=== PATIENT | male | born 1960 | race Caucasian/White ===

== ENCOUNTER → 2020-08-10 | Outpatient (CLI) | payer BC | END | disposition home or self-care (01) | LOC: LABWHC1 15:52 | PROVIDERS: ATTEND Emergency Medicine | DX: Z20.828 Contact with and (suspected) exposure to other viral communicable diseases (principal) | CPT/HCPCS: U0003; C9803 ==

== ENCOUNTER → 2020-10-11 | Outpatient (CLI) | payer BC ==
--- NOTE | 2020-10-12 08:31 | US ---
EXAMINATION TYPE: US carotid duplex BILAT DATE OF EXAM: 10/11/2020 COMPARISON: NONE CLINICAL HISTORY: R42 Dizziness and giddiness. Dizziness and giddiness per order. Hx hypertension. Cu rrent smoker. EXAM MEASUREMENTS: RIGHT: Peak Systolic Velocity (PSV) cm/sec ----- Right CCA: 61.4 ----- Right ICA: 73.5 ----- Right ECA: 128.3 ICA/CCA ratio: 1.2 RIGHT: End Diastole cm/sec ----- Right CCA: 15.2 ----- Right ICA: 20.3 ----- Right ECA: 19.3 LEFT: Peak Systolic Velocity (PSV) cm/sec ----- Left CCA: 56.4 ----- Left ICA: 143.0 ----- Left ECA: 96.0 ICA/CCA ratio: 2.5 LEFT: End Diastole cm/sec ----- Left CCA: 15.9 ----- Left ICA: 52.4 ----- Left ECA: 14.6 VERTEBRALS (direction of flow): Right Vertebral: Antegrade Left Vertebral: Antegrade Rhythm: Normal Elevated velocity within right ECA and left ICA. Plaque seen right CCA, right bulb, left bulb, and le ft ICA. Hypoechoic area with hyperechoic center seen right neck measuring 1.6 x 1.1 x 0.5 cm. IMPRESSION: 1. Atheromatous plaquing left internal carotid artery with moderate narrowing between 50 and 69%. 2. There may be some lymphadenopathy within the right neck Criteria for Assigning % of Stenosis / Diameter reduction (Estimation based on the indirect measurements of the internal carotid artery velocities (ICA PSV). 1. Normal (no stenosis)=ICA PSV < 125 cm/s: ratio < 2.0: ICA EDV<40 cm/s. 2. Less than 50% stenosis=ICA PSV < 125 cm/s: ratio < 2.0: ICA EDV<40 cm/s. 3. 50 to 69% stenosis=ICA PSV of 125 to 230 cm/s: ration 2.0 ? 4.0: ICA EDV 40-100 cm/s. 4. Greater than 70% stenosis to near occlusion= ICA PSV > 230 cm/s: ratio > 4.0: ICA EDV > 100 cm/s. 5. Near occlusion= ICA PSV velocities may be low or undetectable: variable ratio and ICA EDV. 6. Total occlusion=unable to detect flow.
== END | disposition home or self-care (01) ==
LOC: RADUSWWP 16:56
PROVIDERS: ATTEND Internal Medicine
DX: I65.22 Occlusion and stenosis of left carotid artery (principal)
CPT/HCPCS: 93880

== ENCOUNTER → 2020-11-08 | Outpatient (CLI) | payer BC ==
--- NOTE | 2020-11-08 12:25 | US ---
EXAMINATION TYPE: US thyroid st tissue head/neck DATE OF EXAM: 11/08/2020 COMPARISON: Carotid ultrasound 10/11/2020 CLINICAL HISTORY: 59 year-old male L04.9 Acute lymphadenitis, unspecified. Carotid ultrasound showed right neck lymph node. TECHNIQUE: Ultrasound along the right side of the neck at the site of previously seen lymph node. Diana ges of the contralateral side were also obtained. FINDINGS: Right neck lymph node visualized = 1.5 x 0.5 x 0.3 cm. Previously, this measured 1.6 x 1.1 x 0.5 cm. Contralateral images taken. IMPRESSION: A prominent but nonenlarged lymph node along the right side of the neck measuring 1.5 x 0.5 cm (decre ased in size versus 1.6 x 1.1 cm, previously). Decreasing size suggests a reactive/post inflammatory etiology. The node can continue to be followed clinically.
== END | disposition home or self-care (01) ==
LOC: RADUSWWP 10:19
PROVIDERS: ATTEND Internal Medicine
DX: L04.9 Acute lymphadenitis, unspecified (principal)
CPT/HCPCS: 76536

== ENCOUNTER → 2020-11-14 | Outpatient (CLI) | payer BC ==
--- NOTE | 2020-11-14 08:42 | CTL ---
EXAMINATION TYPE: CT Low Dose Lung DATE OF EXAM ORDERED: 11/14/2020 HISTORY: 59-year-old male Z87.891. Personal history of tobacco use. Lung cancer screening CT DLP: 100.[address] CTDI: 2.5 mGy Automated exposure control for dose reduction was used. SCREENING VISIT: Baseline COMPARISON: None TECHNIQUE: Low dose computed tomography scan was performed through the chest at 1 mm thick sections a nd reconstructed images in coronal and sagittal planes. CT DIAGNOSTIC QUALITY: Satisfactory FINDINGS: Heart normal size without pericardial effusion. Trace pericardial fluid. Mild atherosclerotic arch calcifications with bovine configuration to the aortic arch. Scattered nonenlarged mediastinal lymph nodes measuring up to 6 mm lower right paratracheal and 7 mm lower left paratracheal. Trace bilateral gynecomastia. No thoracic lymphadenopathy by CT size criteri a. 4 mm pulmonary nodule right mid lung along the major fissure, axial image 147 likely intrafissural ly mph node. 4 mm medial right apical pulmonary nodule, axial image 51. 4 mm lateral right apical pulmonary nodule, axial image 43. 4 mm lateral left upper lobe pulmonary nodule, axial image 103 6 mm posterior left lower lobe pulmonary nodule, axial image 270. 5 mm subpleural pulmonary nodule posterior right base, axial image 288. Biapical pleural-parenchymal scarring. Mild/moderate centrilobular emphysema and mild to moderate central bronchial wall thickening. Moderate atherosclerotic calcifications of the visualized upper abdominal aorta. Bones: No osseous destructive process. IMPRESSION: 1. LungRADS Category 3 (probably benign, 1-2% chance of malignancy). Scattered pulmonary nodules, lar gest measuring 6 mm in the posterior left lower lobe. 2. COPD with [id number] emphysema. 3. Either a prominent component of chronic bronchitis or superimposed acute bronchitis. RECOMMENDATION: 1. Six-month follow-up low-dose CT chest to reassess the pulmonary nodules. 2. Smoking cessation. CT LUNG RAD AND CT CHEST RECOMMENDATION: Lung-Rad 3 Probably Benign: 6 month follow-up LDCT.
== END ==
LOC: RADCTMAIN 06:51
PROVIDERS: ATTEND Physician Assistant
DX: Z12.2 Encounter for screening for malignant neoplasm of respiratory organs (principal); R91.8 Other nonspecific abnormal finding of lung field; J44.9 Chronic obstructive pulmonary disease, unspecified; Z87.891 Personal history of nicotine dependence
CPT/HCPCS: 71271

== ENCOUNTER → 2020-12-29 | Outpatient (CLI) | payer BC | END | disposition home or self-care (01) | LOC: LABWHC1 15:33 | PROVIDERS: ATTEND Emergency Medicine | DX: Z20.822 Contact with and (suspected) exposure to COVID-19 (principal) | CPT/HCPCS: U0003; C9803; U0005 ==

== ENCOUNTER → 2022-09-06 | Outpatient (CLI) | payer BC ==
[2022-09-06 10:53] LABS: African American GFR (CKD) >90 (>60 ml/min/1.73 sqM); Blood Urea Nitrogen 12 mg/dL (9-20); Non-African American GFR(CKD) >90 (>60 ml/min/1.73 sqM)
--- NOTE | 2022-09-06 13:55 | CT ---
CTA abdomen, pelvis and lower extremities. HISTORY: Left lower extremity radiculopathy COMPARISON: None. TECHNIQUE: Multiple axial images were obtained through the abdomen and pelvis and lower extremities a ccording to the CTA protocol. Coronal and sagittal reconstructions were generated and reviewed. 3-D p ostprocessing was performed. FINDINGS: Inflow arterial circulation: The infrarenal abdominal aorta is heavily calcified but not aneurysmal. There is a suggestion of a si gnificant stenosis of the proximal superior mesenteric artery with 2 cm distal to its origin. The renal arteries are partially calcified but appear patent and the kidneys excrete contrast promptl y and symmetrically. Left inflow: The iliac arteries are moderately calcified. There is at least a moderate stenosis of th e proximal left common iliac artery and within the mid to proximal left external iliac artery. There is at least a moderate stenosis of the distal left external iliac artery. Right inflow: There is no significant stenosis of the right common or external iliac. Outflow arterial circulation: Right outflow: There is moderate scattered calcification of the right common femoral artery but no si gnificant stenosis. There is a severe stenosis of the proximal right superficial femoral artery. The right popliteal kit ry is patent. Left outflow: There is a moderate stenosis of the proximal left common femoral artery. There are mult iple scattered anterior stenoses within the left superficial femoral artery both in its proximal segm ent and in the region of the adductor canal. There is a severe stenosis of the proximal left poplitea l artery. Runoff: Right lower extremity: There is three-vessel runoff into the foot and ankle. Left lower extremity there is three-vessel runoff into the foot and ankle.. IMPRESSION: 1. Moderate to severe multifocal inflow disease on the left involving the left common and external il iac arteries. No significant inflow disease on the right. 2. Significant outflow disease bilaterally as described above, left greater than right, involving th e left proximal and distal superficial femoral artery and proximal left popliteal artery. 3. No significant runoff disease bilaterally. 4. Possible significant stenosis of the proximal superior mesenteric artery.
== END | disposition home or self-care (01) ==
LOC: RADCTMAIN 10:16
PROVIDERS: ATTEND Surgery
DX: I71.40 Abdominal aortic aneurysm, without rupture, unspecified (principal)
CPT/HCPCS: 82565; 84520; 75635; 36415; Q9967

== ENCOUNTER 2022-09-19 10:50 | Day surgery (SDC) | payer BC ==
[2022-09-16 14:35] VITALS: BMI 23.4
[~2022-09-19 10:50] MED LIST: ALPRAZolam 0.25 MG TAB PO PRN; ALPRAZolam 0.5 MG TAB PO PRN; ASPIRIN 325 MG TAB PO PRN; HEPARIN SODIUM,PORCINE 10,000 UNIT in SODIUM CHLORIDE 0.9% 1,000 ML IRRIGATION PRN; HEPARIN SODIUM,PORCINE 2,500 UNIT in SODIUM CHLORIDE 0.9% 250 ML IRRIGATION PRN; SODIUM CHLORIDE 0.9% 1,000 ML in EMPTY BAG 1 BAG IV ONE; ZOLPIDEM 5 MG TAB PO PRN
[2022-09-19 11:23] LABS: Basophils % (A) 0 %; Eosinophils # (A) 0.4 k/uL (0-0.7); Eosinophils % (A) 4 %; HCT 41.4 % (39.0-53.0); HGB 13.9 gm/dL (13.0-17.5); Lymphocytes # (A) 1.8 k/uL (1.0-4.8); Lymphocytes % (A) 18 %; MCH 33.7 pg (25.0-35.0); MCHC 33.6 g/dL (31.0-37.0); MCV 100.2 fL (80.0-100.0); Macrocytosis Slight; Mean Platelet Volume 9.2; Monocytes # (A) 0.5 k/uL (0-1.0); Monocytes % (A) 5 %; Neutrophils # (A) 7.1 k/uL (1.3-7.7); Neutrophils % (A) 71 %; Platelet Count 213 k/uL (150-450); RBC 4.13 m/uL (4.30-5.90); RDW 13.8 % (11.5-15.5)
[2022-09-19] MEDS ORDERED: SODIUM CHLORIDE 0.9% 1,000 ML IV ONE (11:36)
[2022-09-19 11:38] LABS: African American GFR (CKD) >90 (>60 ml/min/1.73 sqM); Anion Gap 6 mmol/L; Blood Urea Nitrogen 13 mg/dL (9-20); Calcium 8.9 mg/dL (8.4-10.2); Carbon Dioxide 25 mmol/L (22-30); Chloride 107 mmol/L (98-107); Glucose 106 mg/dL (74-99); Non-African American GFR(CKD) >90 (>60 ml/min/1.73 sqM); Potassium 4.4 mmol/L (3.5-5.1); Sodium 138 mmol/L (137-145)
[2022-09-19] MEDS ORDERED: fentaNYL (PF) 50 MCG/ML 2 ML AMP ONE (12:55)
[2022-09-19] MEDS ORDERED: MIDAZOLAM 2 MG/2 ML VIAL IV ONE (13:02)
[2022-09-19] MEDS ORDERED: fentaNYL (PF) 50 MCG/ML 2 ML AMP IV ONE (13:03)
[2022-09-19] MEDS ORDERED: LIDOCAINE 1% INJ 10MG/ML (30 ML VIAL-PF) SQ ONE (13:03)
[2022-09-19] MEDS ORDERED: hydrALAZINE HCL 20 MG/ML 1 ML VIAL ONE (13:57)
[2022-09-19] MEDS ORDERED: hydrALAZINE HCL 20 MG/ML 1 ML VIAL IV ONE (13:58)
[2022-09-19] MEDS ORDERED: IOPAMIDOL-250 100ML BTL INTRAARTER ONE ×3 (13:59)
[2022-09-19] MEDS ORDERED: CLOPIDOGREL 75 MG TAB ONE (14:00)
[2022-09-19] MEDS ORDERED: CLOPIDOGREL 75 MG TAB PO ONE (14:02)
--- NOTE | 2022-09-19 14:18 | P.OP ---
Date of Procedure: 09/19/22 Preoperative Diagnosis: #1: Left iliac high-grade stenosis with secondary lifestyle limiting left hip and calf claudication. Postoperative Diagnosis: Same plus left superficial femoral artery stenosis and subtotal occlusion short segment left popliteal artery. Procedure(s) Performed: #1: Ultrasound-guided cannulation left common femoral artery. #2: Abdominal aortogram with runoffs. #3: Balloon angioplasty left common and external iliac arterial segments. #4: Stent placement left common and external iliac arterial segments. Implants: #1: Bare-metal stent. Anesthesia: local Surgeon: Yehuda Dye Estimated Blood Loss (ml): 10 Urine output (ml): 0 Pathology: none sent Condition: stable Disposition: no change Indications for Procedure: Patient is a 59-year-old male who presented with a chief complaint of left hip and calf claudication which was severely lifestyle limiting for him. Arterial Doppler study demonstrated findings consistent with iliac disease. CT angiogram demonstrated high-grade left external and distal common iliac artery. Options of revascularization were discussed with the patient. It was felt the patient be a reasonable candidate for percutaneous repair. Patient is thus offered angiography. The procedure, risk and benefits were discussed with the patient patient wishes proceed. Description of Procedure: Description of procedure and findings: Patient was brought the special procedure suite. Both groins were sterilely prepped and draped in usual manner. Patient did receive 50 g of fentanyl and 2 mg of Versed for moderate conscious sedation purposes. Utilizing ultrasound the left common femoral artery was identified. 1% Xylocaine was utilized for local anesthesia of the tissues overlying the left common femoral artery. Through this anesthetized area and with the aid of ultrasound a micropuncture needle was utilized to cannulate the artery. Once cannulated Softip guidewire is advanced into the artery. The needle was withdrawn and a micropuncture sheath and dilator advanced over the guidewire. The dilator and guidewire withdrawn and replaced with a 0.035 inch guidewire. The micropuncture sheath was removed and exchanged for a 5-Icelandic sheath. Guidewire and catheter combination were used in combination were advanced the catheter to the L1 L2 interspace. Abdominal aortogram with iliofemoral, popliteal and tibial runoff was performed. Findings: Abdominal aortogram demonstrates single renal arteries by the laterally. The right renal arteries widely patent. There is approximately 50% stenosis of the mid segment of the renal artery on the left. The superior mesenteric and lumbar arteries are unremarkable area Right iliac system demonstrates mild stenosis of the common and external as well as internal segments. Right femoral angiography demonstrates the common and profundus femoris to be normally patent. Right superficial femoral artery demonstrates tapered stenosis approximate 5 cm distal to its [place] over a distance of approximately 1 cm. The remainder of the SFA is unremarkable. Right popliteal angiography demonstrates the popliteal artery to be otherwise unremarkable. Right tibial angiography demonstrates all 3 tibial vessels to be normally patent to the level of the ankle mortise. Left iliac angiography demonstrates proxy 50% stenosis of the distal common iliac. There is a 7080% stenosis over distance of approximately 3-4 cm involving the external segment. This appears to be calcified in origin. The very distal external iliac artery also demonstrates calcified stenotic segment. Left femoral angiography demonstrates the common and profundus femoris segments to be unremarkable. The superficial femoral artery approximately 10 cm distally from its origin demonstrates a 50-60% stenosis over a 1 cm segment. The adductor canal segment is moderately stenotic. Left popliteal artery demonstrates a subtotal occlusion over distance of approximately 1/2-3/4 of a centimeter in length at the mid popliteal level. Left tibial angiography demonstrates normal tibial vasculature down to the level of the ankle mortise. Intervention: Was felt the iliac segment on the left would be very amenable to b alloon angioplasty. As such a 6 mm and eventually a 7 mm balloon catheter was utilized to dilate the common and external segments. Area of dissection was identified at the proximal external segment. As such a 7 mm x 120 mm self- expanding stent was selected and deployed in the common and external segments. Completion angiogram demonstrated the dissection to be controlled and no flow limiting lesions identified. With the above findings noted the guidewire and sheath were withdrawn and pressure was held at the puncture site until all evidence of bleeding ceased. Patient tolerated the procedure well. He indicated that he could move his left foot significantly better than prior to the procedure. He was taken the outpatient area in satisfactory and stable condition Plan - Discharge Summary Discharge Rx Participant: No New Discharge Prescriptions: No Action Atorvastatin [Lipitor] 20 mg PO W/SUPPER lisinopriL [Zestril] 10 mg PO W/SUPPER Albuterol Inhaler [Ventolin Hfa Inhaler] 90 mcg INHALATION TID Discharge Medication List Atorvastatin [Lipitor] 20 mg PO W/SUPPER 09/16/22 [History] lisinopriL [Zestril] 10 mg PO W/SUPPER 09/16/22 [History] Albuterol Inhaler [Ventolin Hfa Inhaler] 90 mcg INHALATION TID 09/19/22 [History] Follow up Appointment(s)/Referral(s): Yheuda Dye DO [Doctor of Osteopathic Medicine] - 1 Week (APPOINTMENT MADE ON September @ 10:15AM ) Patient Instructions/Handouts: Peripheral Artery Disease (ED), Moderate Sedation (GEN) Activity/Diet/Wound Care/Special Instructions: *NO LIFTING, PUSHING, OR PULLING ANYTHING OVER 5 POUNDS FOR 5 DAYS *NO DRIVING FOR 3 DAYS *YOU CAN SHOWER TOMORROW BUT DO NOT SUBMERSE YOUR PUNCTURE SITE IN WATER FOR A FEW DAYS TO PREVENT INFECTION - SO NO TUB BATHS, POOLS HOT TUBS, DISHES...ETC *ANY SIGNS OF BLEEDING (HARDNESS, SWELLING, OR EXCESSIVE BRUISING) HOLD DIRECT PRESSURE ON YOUR PUNCTURE SITE AND COME TO THE NEAREST EMERGENCY ROOM TO GET YOUR PUNCTURE SITE LOOKED AT - DO NOT DRIVE YOURSELF! EITHER CALL EMS OR HAVE SOMEONE DRIVE YOU!
--- NOTE | 2022-09-19 14:21 | P.PN ---
Progress Note - Text Progress Note Date: 09/19/22 Total fluoroscopy time was 4.4 minutes and total contrast volume used was 120 mL of Isovue 250.
--- NOTE | 2022-09-19 15:56 | IR ---
EXAMINATION TYPE: IR stent intravas non coronary DATE OF EXAM: 09/19/2022 COMPARISON: NONE HISTORY: Fluoroscopy time. Fluoroscopy was provided to the referring clinician.
[2022-09-19] MEDS ORDERED: lisinopriL 10 MG TAB PO SCH (17:30)
[2022-09-19] MEDS ORDERED: ATORVASTATIN 20 MG TAB PO SCH (17:30)
[2022-09-19] MEDS ORDERED: HYDROcodone/APAP 5-325MG 1 EACH TAB PO STA (17:44)
[2022-09-19 20:54] VITALS: BP 167/82; PULSE 65; RESP 16; TEMP 97.5
== END 2022-09-19 21:35 | disposition home or self-care (01) ==
LOC: CATHCVL 10:50 → 6NMEDSUR 14:10 → CATHCVL 21:35
PROVIDERS: ATTEND Surgery
DX: I70.202 Unspecified atherosclerosis of native arteries of extremities, left leg (principal); F17.200 Nicotine dependence, unspecified, uncomplicated
CPT/HCPCS: 37221; 37223; 75625; 75716; 80048; 85025; C1894 ×2; C1769 ×4; C1725; C1876; J2250; J0360; J2001; J3010; Q9966

== ENCOUNTER → 2023-04-25 | Outpatient (CLI) | payer BC ==
--- NOTE | 2023-04-25 12:32 | CTL ---
EXAMINATION TYPE: CT Low Dose Lung DATE OF EXAM ORDERED: 04/25/2023 HISTORY: 62-year-old male F17.220, nicotine dependence. Current smoker with over 75 pack-year history . Lung cancer screening CT DLP: [address] CTDI: 2.5 mGy Automated exposure control for dose reduction was used. SCREENING VISIT: Left screening performed 2 years ago COMPARISON: 11/14/2020 TECHNIQUE: Low dose computed tomography scan was performed through the chest with coronal and sagitta l reconstructions. CT DIAGNOSTIC QUALITY: Satisfactory FINDINGS: The heart is borderline in size. No pericardial effusion. Ectatic ascending aorta 3.7 cm. Bovine configuration to the aortic arch with mild atherosclerotic arc h calcifications. Right paratracheal node larger at 1.1 cm now. Trace bilateral gynecomastia. There are small bilateral pleural effusions. Some patchy opacity at the posterior right base. Diffuse interstitial and bronchial wall thickening. Mild septal lines at the apices and also in the lower edelmira ngs and minimal occasional, scattered groundglass density. 3 mm anterior left midlung pulmonary nodule, axial image 107 appears new. 3 mm inferior lingular pulmonary nodule, axial image 181 appears new. 4 mm inferior lingular pulmonary nodule, axial image 173 is new. A couple 2 mm lateral lingular pulmonary nodules, axial images 176 and 177. These appear new. 4 mm pulmonary nodule posterior inferior lingula, axial image 205 is unchanged. Calcified granuloma lateral left base, axial image 205 is unchanged 5 mm posterior left basilar pulmonary nodule, axial image 261 is unchanged. Visualized upper abdomen shows no gross abnormality. Bones: No osseous destructive process. IMPRESSION: 1. LungRADS Category 3 (probably benign, 1-2% chance of malignancy). A few pulmonary nodules measurin g 4 mm and smaller appear new particularly in the left upper lobe and lingula. Six-month follow-up lo w-dose CT chest. 2. CHF with acute pulmonary vascular congestion. Small bilateral pleural effusions. 3. A mildly enlarged 1.1 cm right paratracheal node is likely reactive. CT LUNG RAD AND CT CHEST RECOMMENDATION: Lung-Rad 3 Probably Benign: 6 month follow-up LDCT. S Modifier (other clinically significant findings): S, CHF exacerbation.
== END | disposition home or self-care (01) ==
LOC: RADCTMAIN 08:28
PROVIDERS: ATTEND Family Medicine
DX: Z12.2 Encounter for screening for malignant neoplasm of respiratory organs (principal); I50.9 Heart failure, unspecified; J90 Pleural effusion, not elsewhere classified; R91.8 Other nonspecific abnormal finding of lung field; R59.0 Localized enlarged lymph nodes; F17.210 Nicotine dependence, cigarettes, uncomplicated
CPT/HCPCS: 71271

== ENCOUNTER 2023-04-29 09:16 | Inpatient (IN) | payer BC ==
[2023-04-29 10:18] LABS: Basophils % (A) 0 %; Eosinophils # (A) 0.2 k/uL (0-0.7); Eosinophils % (A) 4 %; HCT 41.6 % (39.0-53.0); HGB 13.7 gm/dL (13.0-17.5); Lymphocytes % (A) 20 %; MCH 32.3 pg (25.0-35.0); MCHC 32.9 g/dL (31.0-37.0); MCV 98.1 fL (80.0-100.0); Mean Platelet Volume 8.8; Monocytes # (A) 0.4 k/uL (0-1.0); Monocytes % (A) 7 %; Neutrophils # (A) 3.5 k/uL (1.3-7.7); Neutrophils % (A) 68 %; Platelet Count 125 k/uL (150-450); RBC 4.24 m/uL (4.30-5.90); RDW 13.9 % (11.5-15.5); WBC 5.2 k/uL (3.8-10.6)
--- NOTE | 2023-04-29 10:23 | XR ---
EXAMINATION TYPE: XR chest 2V DATE OF EXAM: 04/29/2023 COMPARISON: 04/25/2023 TECHNIQUE: PA and lateral views submitted. HISTORY: Difficulty breathing FINDINGS: Hyperinflation with cardiomegaly. There is a hiatal hernia suggested. There is a small bilateral pleu ral effusions but no overt failure. Underlying COPD. Hypertrophic changes of the spine. Chronic left clavicular fracture. Biapical pleural thickening. IMPRESSION: 1. Cardiomegaly, COPD and small bilateral pleural effusion.
[2023-04-29 10:32] LABS: ALT 207 U/L (4-49); AST 198 U/L (17-59); African American GFR (CKD) >90 (>60 ml/min/1.73 sqM); Albumin 3.3 g/dL (3.5-5.0); Alkaline Phosphatase 138 U/L (38-126); Anion Gap 9 mmol/L; Blood Urea Nitrogen 14 mg/dL (9-20); Calcium 8.1 mg/dL (8.4-10.2); Carbon Dioxide 22 mmol/L (22-30); Chloride 97 mmol/L (98-107); Glucose 92 mg/dL (74-99); Non-African American GFR(CKD) >90 (>60 ml/min/1.73 sqM); Potassium 4.8 mmol/L (3.5-5.1); Sodium 128 mmol/L (137-145); Total Bilirubin 0.5 mg/dL (0.2-1.3); Total Protein 5.7 g/dL (6.3-8.2)
[2023-04-29 10:41] LABS: NT-Pro-B-Type Natriuretic Pept 9720 pg/mL
[2023-04-29 10:43] LABS: INR 1.1 (<1.2); Partial Thromboplastin Time 25.6 sec (22.0-30.0); Prothrombin Time 11.7 sec (9.0-12.0)
[2023-04-29] MEDS ORDERED: FUROSEMIDE 10 MG/ML 4 ML VIAL IV STA (10:58)
[2023-04-29] MEDS ORDERED: ASPIRIN 325 MG TAB PO STA (11:04)
--- NOTE | 2023-04-29 11:06 | ED ---
General Adult HPI - General Chief complaint: Shortness of Breath Stated complaint: SOB Time Seen by Provider: 04/29/23 09:43 Source: patient, RN notes reviewed, old records reviewed Mode of arrival: ambulatory Limitations: no limitations - History of Present Illness Initial comments: 62-year-old male with progressive dyspnea, weight gain and lower extremity edema. No prior history of congestive heart failure. No active chest pain. Patient states that he felt that his lower extremity edema was related to steroid administration. He had received an outpatient computed tomography scan which did show CHF. No abdominal pain. No vomiting. No reported history of CAD. - Related Data Home Medications Medication Instructions Recorded Confirmed Atorvastatin [Lipitor] 20 mg PO W/SUPPER 09/16/22 10/07/22 lisinopriL [Zestril] 10 mg PO W/SUPPER 09/16/22 10/07/22 Albuterol Inhaler [Ventolin Hfa 90 mcg INHALATION TID 09/19/22 10/07/22 Inhaler] Aspirin 325 mg PO DAILY 10/03/22 10/07/22 Previous Rx's Medication Instructions Recorded Clopidogrel [Plavix] 75 mg PO DAILY #90 tablet 10/07/22 Allergies Allergy/AdvReac Type Severity Reaction Status Date / Time No Known Allergies Allergy Verified 04/29/23 09:24 Review of Systems ROS Statement: Those systems with pertinent positive or pertinent negative responses have been documented in the HPI. ROS Other: All systems not noted in ROS Statement are negative. Past Medical History Past Medical History: Hyperlipidemia, Hypertension, Vascular Disorder History of Any Multi-Drug Resistant Organisms: None Reported Past Surgical History: Tonsillectomy Additional Past Surgical History / Comment(s): had PTBA w/ stenting to left common and external ileac arterial segments on 09-19-22 Past Anesthesia/Blood Transfusion Reactions: No Reported Reaction Past Psychological History: No Psychological Hx Reported Smoking Status: Current every day smoker - Past Family History Mother Family Medical History: Hypertension, Myocardial Infarction ([place]) General Exam Limitations: no limitations General appearance: alert, in no apparent distress Head exam: Present: atraumatic, normocephalic Eye exam: Present: normal appearance, PERRL ENT exam: Present: normal exam Neck exam: Present: normal inspection. Absent: tenderness, meningismus Respiratory exam: Present: rales, rhonchi. Absent: respiratory distress Cardiovascular Exam: Present: regular rate, normal rhythm GI/Abdominal exam: Present: soft. Absent: distended, tenderness, guarding Extremities exam: Present: pedal edema Neurological exam: Present: alert, oriented X3, CN II-XII intact. Absent: motor sensory deficit Psychiatric exam: Present: normal affect, normal mood Skin exam: Present: warm, dry, intact Course Vital Signs 04/29/23 09:21 Temperature 98 F Pulse Rate 84 Respiratory 18 Rate Blood Pressure 155/103 O2 Sat by Pulse 100 Oximetry Medical Decision Making - Medical Decision Making Was pt. sent in by a medical professional or institution (, PA, [employer] [facility], urgent care, hospital, or fpc...) When possible be specific @ -[No] Did you speak to anyone other than the patient for history (EMS, parent, family, police, friend...)? What history was obtained from this source @ -[No] Did you review nursing and triage notes (agree or disagree)? Why? @ -[I reviewed and agree with nursing and triage notes] Were old charts reviewed (outside hosp., previous admission, EMS record, old EKG, old radiological studies, urgent care reports/EKG's, fpc records)? Report findings @ -[No old charts were reviewed] Differential Diagnosis (chest pain, altered mental status, abdominal pain women, abdominal pain men, vaginal bleeding, weakness, fever, dyspnea, syncope, headache, dizziness, GI bleed, back pain, seizure, CVA, palpatations, mental health, musculoskeletal)? @ -[Differential Dyspnea: Coronary syndrome, arrhythmia, tamponade, asthma, COPD, pulmonary embolism, pneumonia, pneumothorax, pulmonary effusion, anaphylaxis, diabetic ketoacidosis, flailed chest, pulmonary contusion, diaphragmatic rupture, anemia, neuromuscular, this is not meant to be an all-inclusive list. EKG interpreted by me (3pts min.). @ -Sinus rhythm left anterior fascicular block, rate of 80, OK interval 168, QRS duration 117, QTC 454, no old for comparison. X-rays interpreted by me (1pt min.). @Bilateral effusions, CHF on chest x-ray CT interpreted by me (1pt min.). @ -[None done] U/S interpreted by me (1pt. min.). @ -[None done] What testing was considered but not performed or refused? (CT, X-rays, U/S, labs)? Why? @ -[None] What meds were considered but not given or refused? Why? @ -[None] Did you discuss the management of the patient with other professionals (professionals i.e. , PA, [employer], lab, RT, psych nurse, mental health social worker, doctor of pharmacy, teacher, policy officer, manager case)? Give summary @ -[Dr. Landa. Was smoking cessation discussed for >3mins.? @ -[No] Was critical care preformed (if so, how long)? @ -[No] Were there social determinants of health that impacted care today? How? (Homelessness, low income, unemployed, alcoholism, drug addiction, transportation, low edu. Level, literacy, decrease access to med. care, assisted, rehab)? @ -[No] Was there de-escalation of care discussed even if they declined (Discuss DNR or withdrawal of care, Hospice)? DNR status @ -[No] What co-morbidities impacted this encounter? (DM, HTN, Smoking, COPD, CAD, Cancer, CVA, ARF, Chemo, Hep., AIDS, mental health diagnosis, sleep apnea, morbid obesity)? @ -[None] Was patient admitted / discharged? Hospital course, mention meds given and route, prescriptions, significant lab abnormalities, going to OR and other pertinent info. @ -[62-year-old male with progressive dyspnea and lower extremity edema over the past one month. No chest pain. No fever. Workup is concerning for new onset CHF with chest x-ray showing pulmonary edema and effusion as well as significantly elevated BNP at 10,000. Patient's given IV Lasix in the emergency department. Troponin minimally elevated likely secondary to CHF rather than acute MT. We will trend this level. Patient has no active chest pain. Undiagnosed new problem with uncertain prognosis? @ -[No] Drug Therapy requiring intensive monitoring for toxicity (Heparin, Nitro, Insulin, Cardizem)? @ -[No] Were any procedures done? @ -[No] Diagnosis/symptom? @ New-onset CHF Acute, or Chronic, or Acute on Chronic? @ Acute Uncomplicated (without systemic symptoms) or Complicated (systemic symptoms)? @ -[Complicated] Side effects of treatment? @ -[No] Exacerbation, Progression, or Severe Exacerbation? @ -[No] Poses a threat to life or bodily function? How? (Chest pain, [place], MT, pneumonia, PE, COPD, DKA, ARF, appy, cholecystitis, CVA, Diverticulitis, Homicidal, Suicidal, threat to staff... and all critical care pts) @ -Yes, CHF - Lab Data Result diagrams: 04/29/23 10:04 04/29/23 10:04 Lab Results 04/29/23 04/29/23 04/29/23 Range/Units 10:04 10:04 10:04 WBC 5.2 (3.8-10.6) k/uL RBC 4.24 L (4.30-5.90) m/uL Hgb 13.7 (13.0-17.5) gm/dL Hct 41.6 (39.0-53.0) % MCV 98.1 (80.0-100.0) fL MCH 32.3 (25.0-35.0) pg MCHC 32.9 (31.0-37.0) g/dL RDW 13.9 (11.5-15.5) % Plt Count 125 L (150-450) k/uL MPV 8.8 Neutrophils % 68 % Lymphocytes % 20 % Monocytes % 7 % Eosinophils % 4 % Basophils % 0 % Neutrophils # 3.5 (1.3-7.7) k/uL Lymphocytes # 1.0 (1.0-4.8) k/uL Monocytes # 0.4 (0-1.0) k/uL Eosinophils # 0.2 (0-0.7) k/uL Basophils # 0.0 (0-0.2) k/uL PT 11.7 (9.0-12.0) sec INR 1.1 (<1.2) APTT 25.6 (22.0-30.0) sec Sodium 128 L (137-145) mmol/L Potassium 4.8 (3.5-5.1) mmol/L Chloride 97 L (98-107) mmol/L Carbon Dioxide 22 (22-30) mmol/L Anion Gap 9 mmol/L BUN 14 (9-20) mg/dL Creatinine 0.85 (0.66-1.25) mg/dL Est GFR (CKD-EPI)AfAm >90 (>60 ml/min/1.73 sqM) Est GFR (CKD-EPI)NonAf >90 (>60 ml/min/1.73 sqM) Glucose 92 (74-99) mg/dL Calcium 8.1 L (8.4-10.2) mg/dL Total Bilirubin 0.5 (0.2-1.3) mg/dL AST 198 H (17-59) U/L ALT 207 H (4-49) U/L Alkaline Phosphatase 138 H (38-126) U/L Troponin I (0.000-0.034) ng/mL NT-Pro-B Natriuret Pep 9720 pg/mL Total Protein 5.7 L (6.3-8.2) g/dL Albumin 3.3 L (3.5-5.0) g/dL 04/29/23 Range/Units 10:04 WBC (3.8-10.6) k/uL RBC (4.30-5.90) m/uL Hgb (13.0-17.5) gm/dL Hct (39.0-53.0) % MCV (80.0-100.0) fL MCH (25.0-35.0) pg MCHC (31.0-37.0) g/dL RDW (11.5-15.5) % Plt Count (150-450) k/uL MPV Neutrophils % % Lymphocytes % % Monocytes % % Eosinophils % % Basophils % % Neutrophils # (1.3-7.7) k/uL Lymphocytes # (1.0-4.8) k/uL Monocytes # (0-1.0) k/uL Eosinophils # (0-0.7) k/uL Basophils # (0-0.2) k/uL PT (9.0-12.0) sec INR (<1.2) APTT (22.0-30.0) sec Sodium (137-145) mmol/L Potassium (3.5-5.1) mmol/L Chloride (98-107) mmol/L Carbon Dioxide (22-30) mmol/L Anion Gap mmol/L BUN (9-20) mg/dL Creatinine (0.66-1.25) mg/dL Est GFR (CKD-EPI)AfAm (>60 ml/min/1.73 sqM) Est GFR (CKD-EPI)NonAf (>60 ml/min/1.73 sqM) Glucose (74-99) mg/dL Calcium (8.4-10.2) mg/dL Total Bilirubin (0.2-1.3) mg/dL AST (17-59) U/L ALT (4-49) U/L Alkaline Phosphatase (38-126) U/L Troponin I 0.059 H* (0.000-0.034) ng/mL NT-Pro-B Natriuret Pep pg/mL Total Protein (6.3-8.2) g/dL Albumin (3.5-5.0) g/dL Disposition Clinical Impression: New onset of congestive heart failure, Congestive heart failure Disposition: ADMITTED IP TO THIS HOSP Condition: Stable Is patient prescribed a controlled substance at d/c from ED?: No Referrals: Jess Butler, PAC [Primary Care Provider] - 1-2 days Time of Disposition: 11:06
[2023-04-29] MEDS ORDERED: NALOXONE 0.4 MG/ML 1 ML VIAL IV PRN (11:20)
[2023-04-29] MEDS ORDERED: LOSARTAN 50 MG TAB PO STA (18:45)
[2023-04-29] MEDS: ATORVASTATIN 40 MG TAB PO SCH (20:06)
[2023-04-29] MEDS: carvediloL 6.25 MG TAB PO SCH (20:06)
[2023-04-29] MEDS ORDERED: FUROSEMIDE 10 MG/ML 4 ML VIAL IV SCH (21:00)
[2023-04-29] MEDS: ACETAMINOPHEN TAB 325 MG TAB PO PRN (22:36)
[2023-04-29] MEDS ORDERED: MAGNESIUM OXIDE 400 MG TAB PO STA (22:43)
[2023-04-30] MEDS: ACETAMINOPHEN TAB 325 MG TAB PO PRN (05:51)
[2023-04-30] MEDS: carvediloL 6.25 MG TAB PO SCH ×2 (05:52→17:22)
[2023-04-30 08:21] LABS: ALT 208 U/L (4-49); AST 159 U/L (17-59); African American GFR (CKD) 89 (>60 ml/min/1.73 sqM); Albumin 3.2 g/dL (3.5-5.0); Alkaline Phosphatase 133 U/L (38-126); Anion Gap 5 mmol/L; Blood Urea Nitrogen 17 mg/dL (9-20); Calcium 8.2 mg/dL (8.4-10.2); Carbon Dioxide 28 mmol/L (22-30); Chloride 96 mmol/L (98-107); Creatine Kinase 108 U/L (55-170); Glucose 106 mg/dL (74-99); Non-African American GFR(CKD) 77 (>60 ml/min/1.73 sqM); Potassium 4.1 mmol/L (3.5-5.1); Sodium 129 mmol/L (137-145); Total Bilirubin 0.8 mg/dL (0.2-1.3); Total Protein 5.6 g/dL (6.3-8.2)
[2023-04-30] MEDS: LOSARTAN 50 MG TAB PO SCH (08:47)
[2023-04-30] MEDS: ASPIRIN 81 MG PO SCH (08:47)
[2023-04-30] MEDS ORDERED: FUROSEMIDE 10 MG/ML 4 ML VIAL IV SCH (09:00)
--- NOTE | 2023-04-30 09:23 | P.CRDCN ---
History of Present Illness Consult date: 04/30/23 Consult reason: congestive heart failure (New onset) History of present illness: History of present illness: This is a 62-year-old male with no previous cardiac history, does not follow with a public records researcher. He has a past medical history of COPD, hypertension not previously on medication, peripheral artery disease with involvement of the left popliteal artery and left superficial femoral artery status post balloon and stent with Dr. Dye in October, tobacco use and dependence, alcohol use daily. Patient recently underwent low dose long CAT scan which revealed a few pulmonary nodules measuring 4 mm and smaller. CHF with acute pulmonary vascular congestion. Small bilateral pleural effusions. Mildly enlarged 1.1 cm right paratracheal node is likely reactive. Patient was also in his PCP office was given a steroid injection on Friday for COPD. The next day he noticed that he had lower extremity edema which gradually improved until couple days ago. He also states he's had aggressive dyspnea and weight increase. He has a cough that is nonproductive. He states he has a little pain in the left side of his chest anteriorly from the rib border to the nipple area. Patient was given 2 doses of IV Lasix 40 mg and states he urinated a lot overnight with loss of 20 pounds. His lower extremity edema is improved as well. He feels like he is back to his baseline. Regarding smoking, patient has smoked one and half packs for many years recently cut down to 10-12 cigarettes per day. Also regarding alcohol use, he has cut back currently at a 6 pack per day. He has been drinking daily since he was 12 years of age. Last night, cardiology was contacted and patient started on Coreg, aspirin, losartan. His blood pressure on presentation was 211/94. EKG sinus rhythm Chest x-ray: Cardiomegaly, COPD, small bilateral pleural effusions WBC 5.2, hemoglobin 13.7, platelet count 125. Sodium 129, potassium 4.1, BUN 17 creatinine 1.03. Glucose 106. AST 159, ALT 208, alkaline phosphatase 133. Troponin 0.059, 0.057, 0.067, 0.084. CK 108. ProBNP 9720. Echocardiogram performed 04/30/2023 revealed dilated LV. Impaired LV systolic function with EF of 20% and global hypokinesia. Moderate mitral regurgitation likely secondary to cardiomyopathy. Home cardiac medications: None Review Of Systems: At the time of my evaluation: Constitutional: No fever, no chills. No weakness, fatigue or lethargy. EENT: No headache. No dizziness. Lungs: No shortness of breath, cough, no sputum production. No wheezing. Cardiovascular: No chest pain, no lower extremity edema. No palpitations. No paroxysmal nocturnal dyspnea. No orthopnea. No lightheadedness or dizziness. No syncopal episodes. Abdominal: No abdominal pain. No nausea, vomiting. No diarrhea. No constipation. No bloody or tarry stools. Genitourinary: No dysuria.. No urinary retention. Musculoskeletal: No myalgias. No muscle weakness, no frequent falls. No back pain. No neck pain. Integumentary: No wounds. No rash. No unusual bruising. Neurologic: No aphasia. No facial droop. No change in mentation. No head injury. No headache. Physical examination: Gen: This is a 62-year-old male. He is resting in bed appears to be comfortable. VS: reviewed. Blood pressure 125/74, heart rate 69, afebrile, pulse ox 98% on room air. HEENT: Head is atraumatic, normocephalic. Pupils equal, round. Sclerae is anicteric. NECK: Supple. No JVD. . LUNGS: Respiratory respiratory wheezing. No intercostal retractions. HEART: Regular rate and rhythm. ABDOMEN: Soft No tenderness. EXTREMITIES: Trace pedal edema. No calf tenderness. NEUROLOGICAL: Patient is awake, alert and oriented x3. Assessment: Acute systolic heart failure Elevated troponins of unclear significance, possible non-ST elevated IL, possible elevation due to heart failure Cardiomyopathy of unknown type COPD Hyponatremia Elevated liver function tests Peripheral artery disease Hypertension Thrombocytopenia Plan: Continue patient on aspirin 81 mg daily, atorvastatin 40 mg daily, Coreg 6.25 mg twice daily, losartan 50 mg daily Continue Lasix IV 40 mg twice daily Monitor I&O, daily weights, electrolytes and renal function The patient nothing by mouth at midnight and plan for cardiac catheterization tomorrow with Dr. Knapp Smoking cessation Alcohol cessation Further recommendations to follow based upon clinical course Thank you kindly for this consultation. Nurse practitioner note has been reviewed, I agree with documented findings and plan of care. Patient was seen and examined. Past Medical History Past Medical History: Hyperlipidemia, Hypertension, Vascular Disorder History of Any Multi-Drug Resistant Organisms: None Reported Past Surgical History: Tonsillectomy Additional Past Surgical History / Comment(s): had PTBA w/ stenting to left common and external ileac arterial segments on 09-19-22 Past Anesthesia/Blood Transfusion Reactions: No Reported Reaction Past Psychological History: No Psychological Hx Reported Smoking Status: Current every day smoker Past Alcohol Use History: Daily Additional Past Alcohol Use History / Comment(s): drinks 6 beers daily Past Drug Use History: None Reported Additional Drug Use History / Comment(s): smokes 1/2 pack daily - Past Family History Mother Family Medical History: Hypertension, Myocardial Infarction ([place]) Medications and Allergies Home Medications Medication Instructions Recorded Confirmed Type Albuterol Inhaler [Ventolin Hfa 2 puff INHALATION RT-Q6H PRN 09/19/22 04/29/23 History Inhaler] DULoxetine HCL [Cymbalta] 30 mg PO HS 04/29/23 04/29/23 History Ibuprofen/Acetaminophen [Advil 3 tab PO BID PRN 04/29/23 04/29/23 History Dual Action 250Mg-125Mg] Allergies Allergy/AdvReac Type Severity Reaction Status Date / Time No Known Allergies Allergy Verified 04/29/23 13:08 Physical Exam Vitals: Vital Signs Temp Pulse Pulse Resp BP BP Pulse Ox 04/30/23 03:18 97.4 F L 77 18 143/79 96 04/30/23 02:00 77 18 04/30/23 00:00 60 18 116/80 96 04/29/23 20:00 98.3 F 85 18 153/98 95 04/29/23 16:02 97.8 F 83 16 167/105 100 04/29/23 14:16 98.1 F 87 18 163/101 100 04/29/23 14:00 16 04/29/23 11:35 83 20 157/105 99 04/29/23 11:24 18 04/29/23 09:21 98 F 84 18 155/103 100 Intake and Output 04/29/23 04/30/23 04/30/23 22:59 06:59 14:59 Intake Total 118 Output Total 1150 2500 Balance -1150 -2500 118 Intake: Oral 118 Output: Urine 1150 2500 Other: Voiding Method Toilet Toilet Urinal Urinal # Bowel Movements 1 Weight 71.9 kg Results 04/29/23 10:04 04/30/23 07:39 Cardiac Enzymes 04/29/23 04/29/23 04/29/23 Range/Units 10:04 10:04 12:40 AST 198 H (17-59) U/L Troponin I 0.059 H* 0.057 H* (0.000-0.034) ng/mL 04/29/23 04/29/23 04/30/23 Range/Units 16:51 20:19 07:39 AST 159 H (17-59) U/L Troponin I 0.067 H* 0.084 H* (0.000-0.034) ng/mL Coagulation 04/29/23 Range/Units 10:04 PT 11.7 (9.0-12.0) sec APTT 25.6 (22.0-30.0) sec CBC 04/29/23 Range/Units 10:04 WBC 5.2 (3.8-10.6) k/uL RBC 4.24 L (4.30-5.90) m/uL Hgb 13.7 (13.0-17.5) gm/dL Hct 41.6 (39.0-53.0) % Plt Count 125 L (150-450) k/uL Comprehensive Metabolic Panel 04/29/23 04/30/23 Range/Units 10:04 07:39 Sodium 128 L 129 L (137-145) mmol/L Potassium 4.8 4.1 (3.5-5.1) mmol/L Chloride 97 L 96 L (98-107) mmol/L Carbon Dioxide 22 28 (22-30) mmol/L BUN 14 17 (9-20) mg/dL Creatinine 0.85 1.03 (0.66-1.25) mg/dL Glucose 92 106 H (74-99) mg/dL Calcium 8.1 L 8.2 L (8.4-10.2) mg/dL AST 198 H 159 H (17-59) U/L ALT 207 H 208 H (4-49) U/L Alkaline Phosphatase 138 H 133 H (38-126) U/L Total Protein 5.7 L 5.6 L (6.3-8.2) g/dL Albumin 3.3 L 3.2 L (3.5-5.0) g/dL Current Medications Generic Name Dose Route Start Last Admin Trade Name Freq PRN Reason Stop Dose Admin Acetaminophen 650 mg 04/29/23 11:20 04/30/23 05:51 Acetaminophen Tab 325 Mg Tab PO 650 mg Q6HR PRN Administration Mild Pain or Fever > 100.5 Aspirin 81 mg 04/30/23 09:00 Aspirin 81 Mg PO DAILY SANDY Atorvastatin Calcium 40 mg 04/29/23 21:00 04/29/23 20:06 Atorvastatin 40 Mg Tab PO 40 mg HS SANDY Administration Carvedilol 6.25 mg 04/29/23 21:00 04/30/23 05:52 Carvedilol 6.25 Mg Tab PO 6.25 mg BID-W/MEALS SANDY Administration Furosemide 40 mg 04/29/23 21:00 04/29/23 20:06 Furosemide 10 Mg/Ml 4 Ml Vial IV 40 mg Q12HR SANDY Administration Losartan Potassium 50 mg 04/30/23 09:00 Losartan 50 Mg Tab PO DAILY SANDY Naloxone HCl 0.2 mg 04/29/23 11:20 Naloxone 0.4 Mg/Ml 1 Ml Vial IV Q2M PRN Opioid Reversal Tramadol HCl 50 mg 04/30/23 06:00 Tramadol 50 Mg Tab PO TID PRN Pain Control Intake and Output 04/29/23 04/30/23 04/30/23 22:59 06:59 14:59 Intake Total 118 Output Total 1150 2500 Balance -1150 -2500 118 Intake: Oral 118 Output: Urine 1150 2500 Other: Voiding Method Toilet Toilet Urinal Urinal # Bowel Movements 1 Weight 71.9 kg 04/29/23 10:04 04/30/23 07:39
--- NOTE | 2023-04-30 10:02 | CA ---
Transthoracic Echo Report Name: Aleksandr Lawson Age: 62 Gender: M : 1960 Exam Date: 04/29/2023 14:31 Exam Location: [place] [facility] Ht (in): 71 Wt (lb): 175 Ordering Physician: Luca Wilkins MD Attending/Referring Phys: [id number], Franky Ssis Et[employer] Developer Molly Das [facility] Procedure CPT: Indications: new CHF Cardiac Hx: Technical Quality: Fair Contrast 1: Lumason Total Dose (mL): 5 Contrast 2: Total Dose (mL): MEASUREMENTS (Male / Female) Normal Values 2D ECHO LV Diastolic Diameter PLAX 5.2 cm 4.2 - 5.9 / 3.9 - 5.3 cm LV Systolic Diameter PLAX 4.5 cm IVS Diastolic Thickness 0.9 cm 0.6 - 1.0 / 0.6 - 0.9 cm LVPW Diastolic Thickness 1.2 cm 0.6 - 1.0 / 0.6 - 0.9 cm LV Relative Wall Thickness 0.4 LVOT Diameter 2.1 cm LV Diastolic Volume MOD BP 149.2 cm??? 67 - 155 / 56 - 104 cm??? LV Systolic Volume MOD BP 123.2 cm??? 22 - 58 / 19 - 49 cm??? LV Ejection Fraction MOD BP 17.4 % >= 55 % LV Cardiac Index MOD BP 1129.5 cm???/min???m??? LV Diastolic Volume MOD 4C 164.5 cm??? LV Systolic Volume MOD 4C 122.2 cm??? LV Ejection Fraction MOD 4C 25.7 % LV Cardiac Index MOD 4C 1840.7 cm???/min???m??? LV Diastolic Length 4C 8.8 cm LV Systolic Length 4C 8.2 cm LV Diastolic Volume MOD 2C 130.5 cm??? LV Systolic Volume MOD 2C 116.7 cm??? LV Ejection Fraction MOD 2C 10.5 % LV Cardiac Index MOD 2C 598.3 cm???/min???m??? LV Diastolic Length 2C 8.4 cm LV Systolic Length 2C 8.8 cm Ascending Aorta Diameter 3.2 cm M-MODE Aortic Root Diameter MM 3.2 cm LA Systolic Diameter MM 4.4 cm LA Ao Ratio MM 1.4 AV Cusp Separation MM 2.1 cm DOPPLER AV Peak Velocity 80.1 cm/s AV Peak Gradient 2.6 mmHg AV Mean Velocity 58.0 cm/s AV Mean Gradient 1.5 mmHg AV Velocity Time Integral 12.9 cm LVOT Peak Velocity 67.0 cm/s LVOT Peak Gradient 1.8 mmHg LVOT Velocity Time Integral 9.3 cm LVOT Stroke Volume 31.1 cm??? LVOT Stroke Volume Index 15.6 ml/m??? LVOT Cardiac Index 1351.7 cm???/min???m??? AV Area Cont Eq vti 2.4 cm??? AV Area Cont Eq pk 2.8 cm??? Mitral E Point Velocity 58.7 cm/s Mitral A Point Velocity 26.2 cm/s Mitral E to A Ratio 2.2 MV Deceleration Time 126.9 ms LV E' Lateral Velocity 5.6 cm/s Mitral E to LV E' Lateral Ratio 10.5 LV E' Septal Velocity 2.9 cm/s Mitral E to LV E' Septal Ratio 19.9 TR Peak Velocity 146.2 cm/s TR Peak Gradient 8.5 mmHg Right Atrial Pressure 8.0 mmHg Pulmonary Artery Systolic Pressu 16.5 mmHg Right Ventricular Systolic Press 16.5 mmHg FINDINGS Left Ventricle Severely increased left ventricular systolic volume. Severely decreased left ventricular ejection fraction. Mildly increased posterior wall thickness. Left ventricular cavity size normal. Severely reduced global left ventricular systolic function. Left ventricular ejection fraction is estimated at 15-20%. Right Ventricle Moderate right ventricular dilatation. Right Atrium Moderate right atrial dilatation. Left Atrium Moderate left atrial dilatation. Mitral Valve Structurally normal mitral valve. Moderate mitral regurgitation. Aortic Valve Trileaflet aortic valve. No aortic regurgitation. Tricuspid Valve Structurally normal tricuspid valve. Trace tricuspid regurgitation. Pulmonic Valve Structurally normal pulmonic valve. Mild pulmonic regurgitation. Pericardium Minimal pericardial effusion (normal variant). Aorta Normal size aortic root and proximal ascending aorta. CONCLUSIONS Dilated LV. Impaired LV systolic function with EF around 20% with global hypokinesia Intact mitral valve leaflets was moderate mitral regurgitation. The MR is likely secondary to cardiomyopathy Previewed by: Dr. Lupillo Monk MD (Electronically Signed) Final Date: 30 April 2023 10:01
[2023-04-30] MEDS: traMADol 50 MG TAB PO PRN ×3 (10:48→23:32)
[2023-04-30] MEDS ORDERED: NITROGLYCERIN SL TABS 0.4 MG TAB SUBLINGUAL PRN (10:57)
[2023-04-30] MEDS ORDERED: ALPRAZolam 0.5 MG TAB PO PRN (10:57)
[2023-04-30] MEDS ORDERED: ASPIRIN 325 MG TAB PO STA (10:57)
[2023-04-30] MEDS ORDERED: ATORVASTATIN 80 MG TAB PO STA (10:57)
[2023-04-30] MEDS ORDERED: ALPRAZolam 0.25 MG TAB PO PRN (10:57)
--- NOTE | 2023-04-30 16:11 | P.HPIM ---
History of Present Illness H&P Date: 04/30/23 Chief Complaint: Progressive dyspnea, cough, edema and weight gain This is a 62-year-old gentleman with past medical history significant for COPD, hypertension, hyperlipidemia, PAD with history of stent placement left superficial femoral artery with , 10/24, nicotine dependence-recently decreased from 1-1/2 packs to 1/2 pack per day, daily alcohol use, 6 pack of b eer per day. Recent lung CT 04/25/2023 reporting scattered pulmonary nodules, largest measuring 4 mm in the posterior left upper lobe and lingula, CHF with acute pulmonary vascular congestion, small bilateral pleural effusions. Reports recent steroid injection.Drinks pickle juice regularly. Complains of worsening shortness of breath, accompanied by nonproductive cough, lower extremity edema, weight gain. Denies chest pain, palpitations, chills or sweats. Diuresed well after 2 doses of Lasix IV push with 24-hour I&O reflecting a negative fluid balance as well as the decrease of 7.4 kg. on admission, blood pressure 155/103. Chest x-ray reported cardiomegaly, COPD, small bilateral pleural effusion ,EKG reported sinus rhythm. Echo reported dilated LV, impaired LV function with EF around 20% with global hypokinesia, moderate mitral regurgitation likely secondary to cardiomyopathy. Afebrile, normal WBC, hemoglobin 13.7, platelets 125, INR 1.1, sodium 129, potassium 4.1 bicarb 28, BUN 17, creatinine 1.03, magnesium 2, total bili 0.8, AST 198 decreased 159, ALT 208, alk phos 133. Tro ponin 0.059, 0.597, 0.067, 0.084. BNP 9720. Albumin 3.2, total protein 5.6. Review of Systems ROS Statement: Those systems with pertinent positive or pertinent negative responses have been documented in the HPI. ROS Other: All systems not noted in ROS Statement are negative. Past Medical History Past Medical History: Hyperlipidemia, Hypertension, Vascular Disorder History of Any Multi-Drug Resistant Organisms: None Reported Past Surgical History: Tonsillectomy Additional Past Surgical History / Comment(s): had PTBA w/ stenting to left common and external ileac arterial segments on 09-19-22 Past Anesthesia/Blood Transfusion Reactions: No Reported Reaction Past Psychological History: No Psychological Hx Reported Smoking Status: Current every day smoker Past Alcohol Use History: Daily Additional Past Alcohol Use History / Comment(s): drinks 6 beers daily Past Drug Use History: None Reported Additional Drug Use History / Comment(s): smokes 1/2 pack daily - Past Family History Mother Family Medical History: Hypertension, Myocardial Infarction (MA) Medications and Allergies Home Medications Medication Instructions Recorded Confirmed Type Albuterol Inhaler [Ventolin Hfa 2 puff INHALATION RT-Q6H PRN 09/19/22 04/29/23 H istory Inhaler] DULoxetine HCL [Cymbalta] 30 mg PO HS 04/29/23 04/29/23 History Ibuprofen/Acetaminophen [Advil 3 tab PO BID PRN 04/29/23 04/29/23 History Dual Action 250Mg-125Mg] Allergies Allergy/AdvReac Type Severity Reaction Status Date / Time No Known Allergies Allergy Verified 04/29/23 13:08 Physical Exam Vitals: Vital Signs Temp Pulse Resp BP Pulse Ox 04/30/23 11:17 53 L 17 148/78 99 04/30/23 08:46 97.7 F 69 16 125/74 98 04/30/23 03:18 97.4 F L 77 18 143/79 96 04/30/23 02:00 77 18 04/30/23 00:00 60 18 116/80 96 04/29/23 20:00 98.3 F 85 18 153/98 95 Intake and Output 04/30/23 04/30/23 04/30/23 06:59 14:59 22:59 Intake Total 898 Output Total 2500 1300 Balance -2500 -402 Intake: Oral 898 Output: Urine 2500 1300 Other: Voiding Method Toilet Toilet Urinal Urinal # Bowel Movements 1 Weight 71.9 kg PHYSICAL EXAM: VITAL SIGNS: [As above] GENERAL: Sitting up in chair, no acute distress HEENT: Normocephalic ,Conjunctivae normal. eyes normal. NECK: Supple, No JVD. No thyroid enlargement. No LNs CARDIOVASCULAR: S1, S2 regular. Systolic murmur. RESPIRATION: Unlabored , equal air entry, Bibasilar crackles ABDOMEN: Soft, nontender . No guarding. No rigidity. Positive bowel sounds LEGS: Pitting pedal edema. PSYCHIATRY: Alert and oriented X3, mood and affect normal. NERVOUS SYSTEM: Cranial N 2-12 grossly normal. No focal deficits.Strength and sensation grossly intact. Skin: Warm and dry, no rash Results CBC & Chem 7: 04/29/23 10:04 04/30/23 07:39 Labs: Abnormal Lab Results - Last 24 Hours (Table) 04/29/23 04/29/23 04/30/23 Range/Units 16:51 20:19 07:39 Sodium 129 L (137-145) mmol/L Chloride 96 L (98-107) mmol/L Glucose 106 H (74-99) mg/dL Calcium 8.2 L (8.4-10.2) mg/dL AST 159 H (17-59) U/L ALT 208 H (4-49) U/L Alkaline Phosphatase 133 H (38-126) U/L Troponin I 0.067 H* 0.084 H* (0.000-0.034) ng/mL Total Protein 5.6 L (6.3-8.2) g/dL Albumin 3.2 L (3.5-5.0) g/dL Thrombosis Risk Factor Assmnt - Choose All That Apply Any of the Below Risk Factors Present?: Yes Each Factor Represents 1 point: Heart failure (<1month) Other Risk Factors: Yes Each Risk Factor Represents 2 Points: Age 61-74 years Thrombosis Risk Factor Assessment Total Risk Factor Score: 3 Thrombosis Risk Factor Assessment Level: Moderate Risk Assessment and Plan Assessment: Acute CHF exacerbation, systolic dysfunction with cardiomyopathy, EF 20% Elevated troponins, suspect related to the above, possible NSTEMI Hyponatremia Thrombocytopenia Hypertension COPD Nicotine dependence Daily alcohol use with elevated LFTs PAD,history of recent stent placement left superficial femoral artery with , 10/24 Plan: Continue on current medication regime ,monitoring and symptomatic treatment. Smoking and alcohol cessation reinforced. Diuresing as per cardiology in addition to arb, beta korina, statin, and aspirin. Developed significant muscle cramps of bilateral lower extremitites last night after initiation of Lipitor, improved with magnesium, Requip and tramadol. Scheduled for cardiac catheterization tomorrow. The impression and plan of care has been dictated as directed. : I performed a history and examination of this patient, discussed the same with the dictator. I agree with the dictator's note ,documented as a scribe. Any additional findings or plans will be noted.
[2023-04-30] MEDS: ATORVASTATIN 40 MG TAB PO SCH (19:43)
[2023-04-30] MEDS: FUROSEMIDE 10 MG/ML 4 ML VIAL IV SCH (19:48)
[2023-05-01] MEDS: ASPIRIN 81 MG PO SCH (05:15)
[2023-05-01] MEDS: carvediloL 6.25 MG TAB PO SCH ×2 (05:15→17:05)
[2023-05-01] MEDS: FUROSEMIDE 10 MG/ML 4 ML VIAL IV SCH (05:52)
[2023-05-01] MEDS: DAPAGLIFLOZIN PROPANEDIOL 10 MG TABLET PO SCH (05:52)
[2023-05-01] MEDS: LOSARTAN 50 MG TAB PO SCH (05:52)
[2023-05-01] MEDS ORDERED: ASPIRIN 325 MG TAB PO STA (05:55)
[2023-05-01] MEDS ORDERED: HEPARIN SODIUM,PORCINE (1 ML) 2,500 UNIT in SODIUM CHLORIDE 0.9% 250 ML IRRIGATION PRN (07:00)
[2023-05-01] MEDS ORDERED: HEPARIN SODIUM,PORCINE 10,000 UNIT in SODIUM CHLORIDE 0.9% 1,000 ML IRRIGATION PRN (07:00)
[2023-05-01 11:13] LABS: African American GFR (CKD) >90 (>60 ml/min/1.73 sqM); Anion Gap 8 mmol/L; Blood Urea Nitrogen 18 mg/dL (9-20); Calcium 8.4 mg/dL (8.4-10.2); Carbon Dioxide 30 mmol/L (22-30); Chloride 95 mmol/L (98-107); Glucose 85 mg/dL (74-99); Non-African American GFR(CKD) 86 (>60 ml/min/1.73 sqM); Potassium 3.7 mmol/L (3.5-5.1); Sodium 133 mmol/L (137-145)
[2023-05-01] MEDS ORDERED: IV FLUID CONTINUATION 1,000 ML IV ONE (11:15)
[2023-05-01] MEDS ORDERED: fentaNYL (PF) 50 MCG/ML 2 ML AMP IVP ONE (11:26)
[2023-05-01] MEDS ORDERED: LIDOCAINE 1% INJ 10MG/ML (5 ML VIAL-PF) SQ ONE (11:29)
[2023-05-01] MEDS ORDERED: VERAPAMIL SYRINGE (5 MG/10 ML) INTRAARTER ONE (11:32)
--- NOTE | 2023-05-01 11:33 | P.PN ---
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 He has a past medical history of COPD, hypertension not previously on medication, peripheral artery disease with involvement of the left popliteal artery and left superficial femoral artery status post balloon and stent with Dr. Dye in October, tobacco use and dependence, alcohol use daily. Patient recently underwent low dose long CAT scan which revealed a few pulmonary nodules measuring 4 mm and smaller. CHF with acute pulmonary vascular congestion. Small bilateral pleural effusions. Mildly enlarged 1.1 cm right paratracheal node is likely reactive. Patient was also in his PCP office was given a steroid injection on Friday for COPD. The next day he noticed that he had lower extremity edema which gradually improved until couple days ago. He also states he's had aggressive dyspnea and weight increase. He has a cough that is nonproductive. He states he has a little pain in the left side of his chest anteriorly from the rib border to the nipple area. Patient was given 2 doses of IV Lasix 40 mg and states he urinated a lot overnight with loss of 20 p ounds. His lower extremity edema is improved as well. He feels like he is back to his baseline. Regarding smoking, patient has smoked one and half packs for many years recently cut down to 10-12 cigarettes per day. Also regarding alcohol use, he has cut back currently at a 6 pack per day. He has been drinking daily since he was 12 years of age. Last night, cardiology was contacted and patient started on Coreg, aspirin, losartan. His blood pressure on presentation was 155/103. EKG sinus rhythm Chest x-ray: Cardiomegaly, COPD, small bilateral pleural effusions WBC 5.2, hemoglobin 13.7, platelet count 125. Sodium 129, potassium 4.1, BUN 17 creatinine 1.03. Glucose 106. AST 159, ALT 208, alkaline phosphatase 133. Troponin 0.059, 0.057, 0.067, 0.084. CK 108. ProBNP 9720. Echocardiogram performed 04/30/2023 revealed dilated LV. Impaired LV systolic function with EF of 20% and global hypokinesia. Moderate mitral regurgitation likely secondary to cardiomyopathy. Home cardiac medications: None 05/01 Patient is scheduled this morning for cardiac catheterization with Dr. Knapp. He denies having any chest pain at this time. Shortness of breath is improved. Reviewed echocardiogram results with the patient today. Blood pressure 129/72, heart rate 48-60, afebrile, pulse ox 96% on room air. Repeat blood work reveals sodium 133, potassium 3.7, BUN 18 creatinine 0.94. Physical examination: Gen: This is a 62-year-old male. He is resting in bed appears to be comfortable. VS: reviewed. Blood pressure 125/74, heart rate 69, afebrile, pulse ox 98% on room air. HEENT: Head is atraumatic, normocephalic. Pupils equal, round. Sclerae is anicteric. NECK: Supple. No JVD. . LUNGS: Respiratory respiratory wheezing. No intercostal retractions. HEART: Regular rate and rhythm. ABDOMEN: Soft No tenderness. EXTREMITIES: Trace pedal edema. No calf tenderness. NEUROLOGICAL: Patient is awake, alert and oriented x3. Assessment: Acute systolic heart failure Elevated troponins of unclear significance, possible non-ST elevated TN, possible elevation due to heart failure Cardiomyopathy of unknown type COPD Hyponatremia Elevated liver function tests Peripheral artery disease Hypertension Thrombocytopenia Plan: Continue patient on aspirin 81 mg daily, atorvastatin 40 mg daily, Coreg 6.25 mg twice daily, losartan 50 mg daily Continue Lasix IV 40 mg twice daily Start patient on Farxiga milligrams daily Monitor I&O, daily weights, electrolytes and renal function Patient is scheduled for cardiac catheterization today with Dr. Knapp Smoking cessation Alcohol cessation Further recommendations to follow based upon clinical course Nurse practitioner note has been reviewed, I agree with documented findings and plan of care. Patient was seen and examined. Objective - Vital Signs Vital signs: Vital Signs Temp 97.7 F 05/01/23 04:00 Pulse 48 L 05/01/23 04:00 Resp 18 05/01/23 04:00 BP 129/72 05/01/23 04:00 Pulse Ox 96 05/01/23 04:00 FiO2 Intake & Output 04/30/23 05/01/23 05/01/23 18:59 06:59 18:59 Intake Total 898 0 Output Total 1300 1600 Balance -402 -1600 0 Weight 69.5 kg Intake: Oral 898 0 Output: Urine 1300 1600 Other: Voiding Method Toilet Toilet Urinal Urinal - Labs CBC & Chem 7: 04/29/23 10:04 05/01/23 07:38
[2023-05-01] MEDS ORDERED: HEPARIN SODIUM 1,000 UN/ML (10ML VL) IVP ONE (11:36)
[2023-05-01] MEDS ORDERED: IOPAMIDOL-370 100ML BTL INJ ONE (11:40)
[2023-05-01] MEDS ORDERED: RX INFO: IV CONTRAST WAS GIVEN 1 EACH MISC MISCELLANE PRN (12:00)
[2023-05-01] MEDS ORDERED: SODIUM CHLORIDE 0.9% 1,000 ML IV SCH (12:00)
--- NOTE | 2023-05-01 12:05 | P.CARDCATH ---
Date of Procedure: 05/01/23 Description of Procedure: Cardiac Catheterization: The patient is a 62-year-old male with a known history of chronic tobacco use, daily alcohol intake who presented with symptoms of CHF and mild troponin elevation, he was found to have severe cardiomyopathy. Recommendations were made regarding cardiac catheterization, the risks and the complications were discussed with the patient who is in full understanding and agreement. Procedure Description: Patient was brought to earth science laboratory technician in fasting semi-sedated state after receiving Fentanyl and Benadryl achieiving moderate conscious sedated state. Using Xylocaine Anesthesia and Seldinger technique, a 6-Georgian sheath was introduced in the right radial artery . Subsequently, selective coronary angiography was performed using a 5-Georgian 3.5 bend Jo Ann catheter. Multiple views of the coronary artery including hemiaxial views were obtained. The right Jo Ann catheter was used to cross the aortic valve and LVEDP was calculated. Following that, catheter and sheath were removed. Hemostasis was obtained with deployment of TR band . There was no immediate complication. Patient was returned to room in stable condition. Of note, the patient received a total of 3500 units of intravenous heparin as well as intra-arterial verapamil. Findings: Left main: This is a large-size vessel, bifurcating into LAD and left circumflex, left main has no high-grade stenosis LAD: This is a large-size vessel, reaching to the apex giving rise to a large diagonal branch might the LAD has no obstructive disease Left circumflex: This is a nondominant vessel giving rise to a large obtuse marginal branch, the left circumflex has no obstructive disease RCA: This is a large dominant vessel, bifurcating into PDA and PLV the right coronary artery has no evidence of obstructive disease Left Ventriculogram: Not performed Hemodynamics: There was no gradient across the aortic valve, LVEDP was 24-26 mmHg Conclusion: 1. No evidence of obstructive disease 2. Elevated LVEDP 3. Right dominance Recommendations: The patient has evidence of nonischemic cardiomyopathy, could be alcoholic cardiomyopathy. The importance of alcohol cessation is discussed with the patient and his family. His medical regimen will be optimized. The findings and the recommendations were discussed with the patient and the family and they were in full understanding and agreement. Duration of sedation is 15 minutes.
[2023-05-01] MEDS: SPIRONOLACTONE 25 MG TAB PO SCH (12:29)
--- NOTE | 2023-05-01 15:23 | P.PN ---
Subjective Progress Note Date: 04/24/23 H&P Date: 04/30/23 Chief Complaint: Progressive dyspnea, cough, edema and weight gain This is a 62-year-old gentleman with past medical history significant for COPD, hypertension, hyperlipidemia, PAD with history of stent placement left superficial femoral artery with , 10/24, nicotine dependence-recently decreased from 1-1/2 packs to 1/2 pack per day, daily alcohol use, 6 pack of beer per day. Recent lung CT 04/25/2023 reporting scattered pulmonary nodules, largest measuring 4 mm in the posterior left upper lobe and lingula, CHF with acute pulmonary vascular congestion, small bilateral pleural effusions. Reports recent steroid injection.Drinks pickle juice regularly. Complains of worsening shortness of breath, accompanied by nonproductive cough, lower extremity edema, weight gain. Denies chest pain, palpitations, chills or sweats. Diuresed well after 2 doses of Lasix IV push with 24-hour I&O reflecting a negative fluid balance as well as the decrease of 7.4 kg. on admission, blood pressure 155/103. Chest x-ray reported cardiomegaly, COPD, small bilateral pleural effusion ,EKG reported sinus rhythm. Echo reported dilated LV, impaired LV function with EF around 20% with global hypokinesia, moderate mitral regurgitation likely secondary to cardiomyopathy. Afebrile, normal WBC, hemoglobin 13.7, platelets 125, INR 1.1, sodium 129, potassium 4.1 bicarb 28, BUN 17, creatinine 1.03, magnesium 2, total bili 0.8, AST 198 decreased 159, ALT 208, alk phos 133. Troponin 0.059, 0.597, 0.067, 0.084. BNP 9720. Albumin 3.2, total protein 5.6. 05/01/2023 maintained on IV fluids, anticoagulated on heparin drip.NPO, scheduled for cardiac catheterization this morning. Creatinine decreased to 0.94 Lipitor held last night secondary to muscle cramps. Diuresed well on diuretics with edema resolved. Mild shortness of breath. Maintaining O2 sats in the high 90s on room air. Denies chest pain or palpitations. Objective - Vital Signs Vital signs: Vital Signs Temp 97.6 F 05/01/23 13:45 Pulse 52 L 05/01/23 13:45 Resp 18 05/01/23 14:16 BP 142/76 05/01/23 13:45 Pulse Ox 98 05/01/23 13:45 FiO2 Intake & Output 04/30/23 05/01/23 05/01/23 18:59 06:59 18:59 Intake Total 898 315 Output Total 1300 1600 Balance -402 -1600 315 Weight 69.5 kg Intake: IV 75 Oral 898 240 Output: Urine 1300 1600 Other: Voiding Method Toilet Toilet Toilet Urinal Urinal Urinal - Exam PHYSICAL EXAM: VITAL SIGNS: [As above] GENERAL: Standing up at bedside, no acute distress HEENT: Normocephalic ,Conjunctivae normal. eyes normal. NECK: Supple, No JVD. No thyroid enlargement. No LNs CARDIOVASCULAR: S1, S2 regular. Systolic murmur. RESPIRATION: Unlabored , equal air entry, Bibasilar crackles ABDOMEN: Soft, nontender . No guarding. No rigidity. Positive bowel sounds LEGS: No edema, no Tenderness, positive DP pulses PSYCHIATRY: Alert and oriented X3, mood and affect normal. NERVOUS SYSTEM: Cranial N 2-12 grossly normal. No focal deficits.Strength and sensation grossly intact. Skin: Warm and dry, no rash - Labs CBC & Chem 7: 04/29/23 10:04 05/01/23 07:38 Labs: Abnormal Lab Results - Last 24 Hours (Table) 05/01/23 Range/Units 07:38 Sodium 133 L (137-145) mmol/L Chloride 95 L (98-107) mmol/L Assessment and Plan Assessment: Acute CHF exacerbation, systolic dysfunction with cardiomyopathy, EF 20%, cardiac catheterization pending Elevated troponins, suspect related to the above, possible NSTEMI Hyponatremia Thrombocytopenia Hypertension COPD Nicotine dependence Daily alcohol use with elevated LFTs PAD,history of recent stent placement left superficial femoral artery with , 10/24 Plan: Continue on current medication regime ,monitoring and symptomatic treatment. Cardiac catheterization pending. Close monitoring of renal function with repeat labs ordered for a.m. Family at bedside, questions and concerns addressed. Anticoagulation/diuretics as per cardiology.Smoking and alcohol cessation reinforced. The impression and plan of care has been dictated as directed. : I performed a history and examination of this patient, discussed the same with the dictator. I agree with the dictator's note ,documented as a scribe. Any additional findings or plans will be noted.
[2023-05-01] MEDS: FUROSEMIDE 20 MG TAB PO SCH (17:10)
[2023-05-01] MEDS: ATORVASTATIN 40 MG TAB PO SCH (20:01)
[2023-05-02] MEDS: carvediloL 6.25 MG TAB PO SCH (06:12)
[2023-05-02 08:36] VITALS: RESP 20; TEMP 97.8
[2023-05-02] MEDS: FUROSEMIDE 20 MG TAB PO SCH (08:38)
[2023-05-02] MEDS: SPIRONOLACTONE 25 MG TAB PO SCH (08:38)
[2023-05-02] MEDS: DAPAGLIFLOZIN PROPANEDIOL 10 MG TABLET PO SCH (08:38)
[2023-05-02] MEDS: LOSARTAN 50 MG TAB PO SCH (08:38)
[2023-05-02] MEDS: ASPIRIN 81 MG PO SCH (08:38)
[2023-05-02 09:13] LABS: ALT 119 U/L (4-49); AST 60 U/L (17-59); African American GFR (CKD) 87 (>60 ml/min/1.73 sqM); Albumin 3.2 g/dL (3.5-5.0); Alkaline Phosphatase 93 U/L (38-126); Anion Gap 7 mmol/L; Blood Urea Nitrogen 18 mg/dL (9-20); Calcium 8.2 mg/dL (8.4-10.2); Carbon Dioxide 28 mmol/L (22-30); Chloride 97 mmol/L (98-107); Glucose 119 mg/dL (74-99); Non-African American GFR(CKD) 75 (>60 ml/min/1.73 sqM); Sodium 132 mmol/L (137-145); Total Bilirubin 0.6 mg/dL (0.2-1.3); Total Protein 5.7 g/dL (6.3-8.2)
[2023-05-02 09:17] LABS: African American GFR (CKD) >90 (>60 ml/min/1.73 sqM); Anion Gap 5 mmol/L; Blood Urea Nitrogen 18 mg/dL (9-20); Calcium 8.2 mg/dL (8.4-10.2); Carbon Dioxide 30 mmol/L (22-30); Chloride 97 mmol/L (98-107); Glucose 121 mg/dL (74-99); Non-African American GFR(CKD) 78 (>60 ml/min/1.73 sqM); Sodium 132 mmol/L (137-145)
[2023-05-02 11:32] VITALS: BP 124/69; PULSE 58
--- NOTE | 2023-05-02 12:54 | P.DS ---
Providers Date of admission: 04/29/23 11:21 Expected date of discharge: 05/02/23 Attending physician: Denny Landa MD Consults: 04/29/23 11:20 Consult Physician Routine Consulting Provider: Stacy Knapp Consult Reason/Comments: New CHF Do you want consulting provider notified?: Yes Primary care physician: Quiana Osullivan [facility] Course: Final Diagnoses: Acute CHF exacerbation, systolic dysfunction with cardiomyopathy, EF 20%, cardiac catheterization reporting no evidence of obstructive disease, elevated LVEDP,24-26, right dominance. Nonischemic cardiomyopathy, suspect alcoholic cardiomyopathy. Importance of alcohol cessation reinforced. Elevated troponins, suspect related to the above. Acute renal insufficiency, creatinine post-cath 1.06. Hyponatremia, improving, 132 Thrombocytopenia Hypertension COPD Nicotine dependence, nicotine cessation reinforced Daily alcohol use with elevated LFTs PAD,history of recent stent placement left superficial femoral artery with , 10/24 Hospital course:This is a 62-year-old gentleman with past medical history significant for COPD, hypertension, hyperlipidemia, PAD with history of stent placement left superficial femoral artery with , 10/24, nicotine dependence-recently decreased from 1-1/2 packs to 1/2 pack per day, daily alcohol use, 6 pack of beer per day. Recent lung CT 04/25/2023 reporting scattered pulmonary nodules, largest measuring 4 mm in the posterior left upper lobe and lingula, CHF with acute pulmonary vascular congestion, small bilateral pleural effusions. Reports recent steroid injection.Drinks pickle juice regularly. Complains of worsening shortness of breath, accompanied by nonproductive cough, lower extremity edema, weight gain. Denies chest pain, palpitations, chills or sweats. Diuresed well after 2 doses of Lasix IV push with 24-hour I&O reflecting a negative fluid balance as well as the decrease of 7.4 kg. on admission, blood pressure 155/103. Chest x-ray reported cardiomegaly, COPD, small bilateral pleural effusion ,EKG reported sinus rhythm. Echo reported dilated LV, impaired LV function with EF around 20% with global hypokinesia, moderate mitral regurgitation likely secondary to cardiomyopathy. Afebrile, normal WBC, hemoglobin 13.7, platelets 125, INR 1.1, sodium 129, potassium 4.1 bicarb 28, BUN 17, creatinine 1.03, magnesium 2, total bili 0.8, AST 198 decreased 159, ALT 208, alk phos 133. Troponin 0.059, 0.597, 0.067, 0.084. BNP 9720. Albumin 3.2, total protein 5.6. 05/01/2023 maintained on IV fluids, anticoagulated on heparin drip.NPO, scheduled for cardiac catheterization this morning. Creatinine decreased to 0.94 Lipitor held last night secondary to muscle cramps. Diuresed well on diuretics with edema resolved. Mild shortness of breath. Maintaining O2 sats in the high 90s on room air. Denies chest pain or palpitations. EF 20%, cardiac catheterization reporting no evidence of obstructive disease, elevated LVEDP, right dominance. Nonischemic cardiomyopathy, suspect alcoholic cardiomyopathy. Importance of alcohol cessation reinforced. Significant clinical improvement. Denies chest pain, palpitations or shortness of breath. Denies lightheadedness dizziness or focal deficits. Ambulating, tolerating exertion well. Alcohol and smoking cessation reinforced. Patient will be discharged home today in a stable condition with guarded prognosis. The impression and plan of care has been dictated as directed. : I performed a history and examination of this patient, discussed the same with the dictator. I agree with the dictator's note ,documented as a scribe. Any additional findings or plans will be noted. Patient Condition at Discharge: Stable Plan - Discharge Summary Discharge Rx Participant: No New Discharge Prescriptions: New Rosuvastatin [Crestor] 5 mg PO DAILY #30 tablet Ubidecarenone [Coenzyme Q10] 10 mg PO DAILY #30 capsule Losartan [Cozaar] 50 mg PO DAILY #30 tab Spironolactone [Aldactone] 25 mg PO DAILY #30 tab carvediloL [Coreg] 6.25 mg PO BID-W/MEALS #60 tab Dapagliflozin Propanediol [Farxiga] 10 mg PO DAILY #30 tab Furosemide [Lasix] 20 mg PO 0900,1700 #60 tab Continue Albuterol Inhaler [Ventolin Hfa Inhaler] 2 puff INHALATION RT-Q6H PRN PRN Reason: Shortness Of Breath DULoxetine HCL [Cymbalta] 30 mg PO HS Discontinued Ibuprofen/Acetaminophen [Advil Dual Action 250Mg-125Mg] 3 tab PO BID PRN PRN Reason: Pain Discharge Medication List Albuterol Inhaler [Ventolin Hfa Inhaler] 2 puff INHALATION RT-Q6H PRN 09/19/22 [History] DULoxetine HCL [Cymbalta] 30 mg PO HS 04/29/23 [History] Dapagliflozin Propanediol [Farxiga] 10 mg PO DAILY #30 tab 05/02/23 [Rx] Furosemide [Lasix] 20 mg PO 0900,1700 #60 tab 05/02/23 [Rx] Losartan [Cozaar] 50 mg PO DAILY #30 tab 05/02/23 [Rx] Rosuvastatin [Crestor] 5 mg PO DAILY #30 tablet 05/02/23 [Rx] Spironolactone [Aldactone] 25 mg PO DAILY #30 tab 05/02/23 [Rx] Ubidecarenone [Coenzyme Q10] 10 mg PO DAILY #30 capsule 05/02/23 [Rx] carvediloL [Coreg] 6.25 mg PO BID-W/MEALS #60 tab 05/02/23 [Rx] Follow up Appointment(s)/Referral(s): Jess Butler, JOSE ANGEL [Family Provider] - 3 Days Ambulatory/Diagnostic Orders: Basic Metabolic Panel [LAB.AMB] Time Frame: 3 Days, Location: None Selected Activity/Diet/Wound Care/Special Instructions: Smoking and alcohol cessation
--- NOTE | 2023-05-02 13:18 | P.PN ---
Subjective Progress Note Date: 05/02/23 PROGRESS NOTE The patient is a 62-year-old male with known history of chronic tobacco use, chronic alcohol intake who presented with symptoms of progressive dyspnea and evidence of CHF. His echocardiogram showed severe cardiomyopathy. He underwent cardiac catheterization and had no significant obstructive disease. He's feeling better today, anxious to go home. He denies any chest discomfort, dizziness or palpitations. Medications: Aspirin, Lipitor 40 mg daily, Coreg 6.25 mg twice a day, Lasix 20 mg twice a day, losartan 50 mg daily, Aldactone 25 mg daily, Farxiga 10 mg daily PHYSICAL EXAMINATION: Blood pressure 124/69 heart rate 60 LUNGS: Clear to auscultation HEART: Regular rate and rhythm, S1, S2. No S3. Systolic ejection murmur ABDOMEN: Soft, nontender, no organomegaly EXTREMETIES: No edema, right radial pulse intact LAB: Potassium 4, BUN 18, creatinine 1.06 IMPRESSION: 1. Severe nonischemic cardiomyopathy 2. Chronic tobacco use 3. Chronic EtOH intake 4. History of COPD PLAN: 1. Continue present therapy 2. Alcohol and tobacco cessation 3. Increase physical activity 4. Discharged home today and follow-up as an outpatient to follow his systolic function and guide his treatment, the recommendations were discussed with the patient and his family. Objective - Vital Signs Vital signs: Vital Signs Temp 97.8 F 05/02/23 11:31 Pulse 58 L 05/02/23 11:31 Resp 20 05/02/23 11:31 BP 124/69 05/02/23 11:31 Pulse Ox 95 05/02/23 11:31 FiO2 Intake & Output 05/01/23 05/02/23 05/02/23 18:59 06:59 18:59 Intake Total 780 236 Output Total 1100 800 Balance -320 -800 236 Intake: IV 75 Intake, IV Titration 225 Amount Sodium Chloride 0.9% 1, 225 000 ml @ 75 mls/hr IV . [id number] [facility], 1928–1983 Rx#:[id number] Oral 480 236 Output: Urine 1100 800 Other: Voiding Method Toilet Toilet Urinal Urinal # Voids 3 - Labs CBC & Chem 7: 04/29/23 10:04 05/02/23 08:07 Labs: Abnormal Lab Results - Last 24 Hours (Table) 05/02/23 05/02/23 Range/Units 08:07 08:07 Sodium 132 L 132 L (137-145) mmol/L Chloride 97 L 97 L (98-107) mmol/L Glucose 121 H 119 H (74-99) mg/dL Calcium 8.2 L 8.2 L (8.4-10.2) mg/dL AST 60 H (17-59) U/L ALT 119 H (4-49) U/L Total Protein 5.7 L (6.3-8.2) g/dL Albumin 3.2 L (3.5-5.0) g/dL
== END 2023-05-02 13:29 | disposition home or self-care (01) | DRG 280 ==
LOC: EC 09:16 → 3SCARD 11:21
PROVIDERS: ADMIT Family Medicine; ATTEND Family Medicine
PROC: B2111ZZ Fluoroscopy of Multiple Coronary Arteries using Low Osmolar Contrast (ICD-10-PCS; 2023-05-01)
PROC: 4A023N7 Measurement of Cardiac Sampling and Pressure, Left Heart, Percutaneous Approach (ICD-10-PCS; principal; 2023-05-01 10:30)
DX: I11.0 Hypertensive heart disease with heart failure (principal); I50.23 Acute on chronic systolic (congestive) heart failure; I21.A1 Myocardial infarction type 2; E87.1 Hypo-osmolality and hyponatremia; I34.0 Nonrheumatic mitral (valve) insufficiency; I42.8 Other cardiomyopathies; I44.4 Left anterior fascicular block; J44.9 Chronic obstructive pulmonary disease, unspecified; T38.0X5A Adverse effect of glucocorticoids and synthetic analogues, initial encounter; E78.5 Hyperlipidemia, unspecified; D69.6 Thrombocytopenia, unspecified; F17.200 Nicotine dependence, unspecified, uncomplicated; Z71.6 Tobacco abuse counseling; Z79.02 Long term (current) use of antithrombotics/antiplatelets; Z79.82 Long term (current) use of aspirin; Z82.49 Family history of ischemic heart disease and other diseases of the circulatory system
CPT/HCPCS: 36415; 71046; 80048; 80053; 82550; 83735; 83880; 84484; 85025; 85610; 85730; 93005; 93306; 93458; 96374; 99285